=== PATIENT | female | born 1960 | race Asian ===

== ENCOUNTER 2024-02-21 18:06 | Emergency (ER) | payer BC, MEDICAID ==
[~2024-02-21] VITALS: Ht 175.3 cm; Wt 77.1 kg
[2024-02-21 18:18] VITALS: BP_SYST 119; PULSE 66; RESP 15; TEMP 97.5; O2SAT 96
[2024-02-21 18:52] LABS: BASOPHILS % (AUTO) 0.4 % (0.0-2.0); EOSINOPHILS # (AUTO) 0.2 K/uL (0.0-0.4); EOSINOPHILS % (AUTO) 3.5 % (0.0-4.0); HEMATOCRIT 37.9 % (36-48); HEMOGLOBIN 12.9 g/dL (12.0-16.0); LYMPHOCYTES # (AUTO) 1.8 K/uL (1.0-5.5); LYMPHOCYTES % (AUTO) 34.2 % (20.5-51.5); MEAN CORPUSCULAR HEMOGLOBIN 30 pg (27-31); MEAN CORPUSCULAR HGB CONC 34 % (32-36); MEAN CORPUSCULAR VOLUME 87 fL (79.0-98.0); MONOCYTES # (AUTO) 0.3 K/uL (0.0-1.0); MONOCYTES % (AUTO) 6.3 % (1.7-9.3); NEUTROPHILS % (AUTO) 55.6 % (40.0-70.0); PLATELET COUNT (AUTO) 244 K/uL (130-430); RED BLOOD CELL COUNT(AUTO) 4.35 MIL/uL (4.2-6.2); RED CELL DISTRIBUTION WIDTH 13.8 % (9.0-15.0); WHITE BLOOD COUNT (AUTO) 5.4 K/uL (4.8-10.8)
[2024-02-21] MEDS: MORPHINE 4 MG INJ. 4 MG/ML VIAL IVP ONE (18:53)
[2024-02-21] MEDS: ONDANSETRON HCL 4 MG/2 ML VIAL IVP ONE (18:54)
[2024-02-21 18:58] LABS: CALCIUM 8.3 mg/dL (8.4-11.0); CREATININE 0.82 mg/dL (0.55-1.30); POTASSIUM 3.6 mmol/L (3.5-5.1)
[2024-02-21 19:03] LABS: ALBUMIN 3.3 g/dL (3.4-4.8); TOTAL BILIRUBIN 0.3 mg/dL (0.0-1.0); TOTAL PROTEIN, SERUM 7.2 g/dL (6.4-8.3)
[2024-02-21] MEDS ORDERED: ACET-2634 PO (21:08)
[2024-02-21] MEDS ORDERED: TRAM50TA2 PO (21:08)
[2024-02-21] MEDS ORDERED: IBUP-1969 PO (21:08)
[2024-02-21 21:35] VITALS: BP_SYST 107; PULSE 60; RESP 18; TEMP 97.2; O2SAT 96
== END 2024-02-21 21:35 | disposition home or self-care (01) ==
LOC: SED 18:06
DX: M54.12 Radiculopathy, cervical region (principal); R53.1 Weakness; Z79.899 Other long term (current) drug therapy
CPT/HCPCS: 99285; 96374; 72125; 96375; 80053; 85025; 36415; J2405; J2270

== ENCOUNTER 2024-07-26 10:34 | Emergency (ER) | payer BC, MEDICAID ==
[~2024-07-26] VITALS: Ht 165.1 cm; Wt 68.0 kg
[~2024-07-26 10:34] MED LIST: ACET-2634 PO; IBUP-1969 PO; TRAM50TA2 PO
[2024-07-26 10:44] VITALS: BP_SYST 122; PULSE 67; RESP 16; TEMP 97.5; O2SAT 96
[2024-07-26] MEDS: ASPIRIN 81 MG TABLET(ECOTRIN) PO ONE (10:53)
[2024-07-26 11:04] LABS: BASOPHILS % (AUTO) 0.5 % (0.0-2.0); EOSINOPHILS # (AUTO) 0.1 K/uL (0.0-0.4); EOSINOPHILS % (AUTO) 3.3 % (0.0-4.0); HEMATOCRIT 37.9 % (36-48); HEMOGLOBIN 12.5 g/dL (12.0-16.0); LYMPHOCYTES # (AUTO) 1.4 K/uL (1.0-5.5); LYMPHOCYTES % (AUTO) 33.4 % (20.5-51.5); MEAN CORPUSCULAR HEMOGLOBIN 29 pg (27-31); MEAN CORPUSCULAR HGB CONC 33 % (32-36); MEAN CORPUSCULAR VOLUME 89 fL (79.0-98.0); MONOCYTES # (AUTO) 0.3 K/uL (0.0-1.0); MONOCYTES % (AUTO) 6.6 % (1.7-9.3); NEUTROPHILS # (AUTO) 2.3 K/uL (1.8-7.7); NEUTROPHILS % (AUTO) 56.2 % (40.0-70.0); PLATELET COUNT (AUTO) 294 K/uL (130-430); RED BLOOD CELL COUNT(AUTO) 4.27 MIL/uL (4.2-6.2); RED CELL DISTRIBUTION WIDTH 13.9 % (9.0-15.0); WHITE BLOOD COUNT (AUTO) 4.1 K/uL (4.8-10.8)
[2024-07-26 11:29] LABS: ANION GAP 8 (5-15); CALCIUM 8.7 mg/dL (8.4-11.0); CARBON DIOXIDE 27 mmol/L (23-29); CHLORIDE 106 mmol/L (98-107); CREATINE KINASE, TOTAL 62 U/L (26-192); CREATININE 0.72 mg/dL (0.55-1.30); GFR AFRICAN AMERICAN 104 mL/min (>90); GFR NON AFRICAN-AMERICAN 86 mL/min (>90); GLUCOSE 124 mg/dL (74-106); POTASSIUM 3.7 mmol/L (3.5-5.1); SODIUM SERUM 141 mmol/L (136-145); UREA NITROGEN, BLOOD 19 mg/dL (8-21)
[2024-07-26 20:56] VITALS: BP_SYST 131; PULSE 98; RESP 24; TEMP 97.3; O2SAT 95
== END 2024-07-26 20:56 | disposition short-term general hospital (02) ==
LOC: SED 10:34
DX: G45.8 Other transient cerebral ischemic attacks and related syndromes (principal); R51.9 Headache, unspecified; R20.0 Anesthesia of skin; Z20.822 Contact with and (suspected) exposure to COVID-19; Z79.899 Other long term (current) drug therapy; Z79.2 Long term (current) use of antibiotics
CPT/HCPCS: 36415; 70450-TC; 71045; 80048; 82550; 83605; 84484; 85025; 85610; 85730; 93005; 99285